=== PATIENT | male | born 1980 | race American Indian/Alaskan Native ===

== ENCOUNTER 2020-06-27 05:20 | Emergency (ER) | payer MEDICARE ==
[2020-06-27] MEDS ORDERED: dexAMETHasone 20 MG/5 ML VIAL IV ONE (05:31)
[2020-06-27] MEDS ORDERED: ALBUTEROL 2.5 MG/3 ML NEBU IH ONE (05:31)
[2020-06-27] MEDS ORDERED: dexAMETHasone 20 MG/5 ML VIAL IM ONE (05:34)
--- NOTE | 2020-06-27 05:38 | Event Note ---
ED Screening Note Date of service: 06/27/20 Time: 05:34 ED Screening Note: Patient is a 39-year-old -Italian male with a history of asthma who presents for cough and wheezing x3 weeks intermittently. Patient states he saw his PCP who recommended getting a chest x-ray. There is no fever noted at this time. This initial assessment/diagnostic orders/clinical plan/treatment(s) is/are subject to change based on patients health status, clinical progression and re- assessment by fellow clinical providers in the ED. Further treatment and workup at subsequent clinical providers discretion. Patient/guardian urged not to elope from the ED as their condition may be serious if not clinically assessed and managed. Initial orders include:CXR, Albuterol , decadron
--- NOTE | 2020-06-27 06:14 | XRay Report ---
CHEST 2 VIEWS INDICATION / CLINICAL INFORMATION: cough productive wheezing. COMPARISON: None available. FINDINGS: SUPPORT DEVICES: None. HEART / MEDIASTINUM: No significant abnormality. LUNGS / PLEURA: No significant pulmonary or pleural abnormality. No pneumothorax. ADDITIONAL FINDINGS: No significant additional findings. IMPRESSION: 1. No acute findings. Signer Name: Sergey Grant MD Signed: 06/27/2020 6:10 AM Workstation Name: [id number]
--- NOTE | 2020-06-27 06:49 | Emergency Department Report ---
ED Asthma HPI - General Chief Complaint: Adult Asthma Stated Complaint: ASHWINI Time Seen by Provider: 06/27/20 06:44 Source: patient Mode of arrival: Ambulatory Limitations: No Limitations - History of Present Illness Initial Comments: Patient is a 39-year-old -[place] male with a history of asthma who presents for cough and wheezing x3 weeks intermittently. Patient states he saw his PCP who recommended getting a chest x-ray. There is no fever noted at this time. - Related Data Previous Rx's Medication Instructions Recorded Last Taken Type Albuterol Mdi (or & Nicu Only) 2 puff IH QID PRN #8.5 gram 06/27/20 Unknown Rx [ProAir HFA Inhaler] predniSONE [Deltasone] 40 mg PO QDAY 5 Days #10 tab 06/27/20 Unknown Rx Allergies Allergy/AdvReac Type Severity Reaction Status Date / Time No Known Allergies Allergy Unverified 06/27/20 05:33 ED Review of Systems ROS: Stated complaint: ASHWINI Other details as noted in HPI Constitutional: denies: chills, fever Eyes: denies: eye pain, eye discharge, vision change ENT: throat pain, congestion Respiratory: cough, shortness of breath, wheezing Cardiovascular: denies: chest pain, palpitations Endocrine: no symptoms reported Gastrointestinal: denies: abdominal pain, nausea, diarrhea Genitourinary: denies: urgency, dysuria Musculoskeletal: denies: back pain, joint swelling, arthralgia Skin: denies: rash, lesions Neurological: denies: headache, weakness, paresthesias Psychiatric: denies: anxiety, depression Hematological/Lymphatic: denies: easy bleeding, easy bruising ED Past Medical Hx - Social History Smoking Status: Current Every Day Smoker Substance Use Type: None - Medications Home Medications: Home Medications Medication Instructions Recorded Confirmed Last Taken Type Albuterol Mdi (or & Nicu Only) 2 puff IH QID PRN #8.5 gram 06/27/20 Unknown Rx [ProAir HFA Inhaler] predniSONE [Deltasone] 40 mg PO QDAY 5 Days #10 tab 06/27/20 Unknown Rx ED Physical Exam - General Limitations: No Limitations General appearance: alert, in no apparent distress - Head Head exam: Present: atraumatic, normocephalic - Eye Eye exam: Present: normal appearance, EOMI Pupils: Present: normal accommodation - ENT ENT exam: Present: mucous membranes moist - Neck Neck exam: Present: normal inspection - Respiratory Respiratory exam: Present: wheezes. Absent: respiratory distress, stridor, chest wall tenderness - Cardiovascular Cardiovascular Exam: Present: regular rate, normal rhythm, normal heart sounds. Absent: systolic murmur, diastolic murmur, rubs, gallop - GI/Abdominal GI/Abdominal exam: Present: soft, normal bowel sounds. Absent: distended, tenderness, bruit, hernia - Rectal Rectal exam: Present: deferred - Extremities Exam Extremities exam: Present: normal inspection - Back Exam Back exam: Present: normal inspection, full ROM. Absent: tenderness - Neurological Exam Neurological exam: Present: alert, oriented X3, CN II-XII intact, normal gait - Psychiatric Psychiatric exam: Present: normal affect - Skin Skin exam: Present: warm, dry, intact, normal color. Absent: rash ED Course Vital Signs 06/27/20 06/27/20 05:31 06:08 Temperature 97.8 F Pulse Rate 85 Pulse Rate [ 88 Bilateral] Respiratory 22 Rate [Bilateral ] Blood Pressure 130/90 O2 Sat by Pulse 98 Oximetry ED Medical Decision Making - Radiology Data Radiology results: report reviewed, image reviewed Chest x-ray normal no opacities no infiltrates. - Medical Decision Making Chest x-ray normal no opacities no infiltrates, wheezing resolved with nebulizer treatment. Patient amatory in ED without increased shortness of breath and wheezing is resolved. Plan refill albuterol inhaler short burst prednisone follow-up with primary care doctor in 2 to 3 days. Patient verbalized agreement and understanding with discharge plan. Patient DC'd home in stable condition at this time. Critical care attestation.: If time is entered above; I have spent that time in minutes in the direct care of this critically ill patient, excluding procedure time. ED Disposition Clinical Impression: Asthma Qualifiers: Asthma severity: mild Asthma persistence: intermittent Asthma complication type: with acute exacerbation Qualified Code(s): J45.21 - Mild intermittent asthma with (acute) exacerbation Disposition: DC-01 TO HOME OR SELFCARE Is pt being admited?: No Does the pt Need Aspirin: No Condition: Stable Instructions: Asthma (ED), Asthma, Adult Prescriptions: predniSONE [Deltasone] 40 mg PO QDAY 5 Days #10 tab Albuterol Mdi (or & Nicu Only) [ProAir HFA Inhaler] 2 puff IH QID PRN #8.5 gram PRN Reason: Shortness Of Breath Referrals: JARED SIMONS MD [Staff Physician] - 3-5 Days Forms: Work/School Release Form(ED) Time of Disposition: 06:48
[2020-06-27 06:59] VITALS: BP 121/83
== END 2020-06-27 06:52 | disposition home or self-care (01) ==
LOC: ED 05:20
DX: J45.909 Unspecified asthma, uncomplicated (principal); F17.200 Nicotine dependence, unspecified, uncomplicated; Z79.899 Other long term (current) drug therapy
CPT/HCPCS: 71046; 94640; 96372; 99283; J1100; 94644

== ENCOUNTER 2020-12-14 18:17 | Emergency (ER) | payer MEDICARE ==
[2020-12-14 18:30] VITALS: BP 116/69
--- NOTE | 2020-12-14 18:33 | Event Note ---
ED Screening Note ED Screening Note: Patient presents for chest pain and shortness of breath that worsened today He states he is not sure if it is from his asthma but he does not have his albuterol inhaler He states occasionally he has a cough Breath sounds are clear bilaterally, no wheezing, no rales, no rhonchi Patient is tachycardic in triage This initial assessment/diagnostic orders/clinical plan/treatment(s) is/are subject to change based on patients health status, clinical progression and re- assessment by fellow clinical providers in the ED. Further treatment and workup at subsequent clinical providers discretion. Patient/guardian urged not to elope from the ED as their condition may be serious if not clinically assessed and managed. Initial orders include: Chest pain protocol ordered
--- NOTE | 2020-12-14 19:03 | XRay Report ---
CHEST 2 VIEWS INDICATION: Chest Pain. COMPARISON: 06/27/2020 FINDINGS: Support devices: None. Heart: Within normal limits. Lungs/Pleura: No acute air space or interstitial disease. No significant pleural effusion. IMPRESSION: No acute findings. Signer Name: Esteban August MD Signed: 12/14/2020 6:58 PM Workstation Name: [id number]
[2020-12-14 19:16] LABS: Basophils # (Auto) 0.1 K/mm3 (0.0-0.1); Basophils % (Auto) 0.8 % (0.0-1.8); Eosinophils # (Auto) 0.8 K/mm3 (0.0-0.4); Eosinophils % (Auto) 7.4 % (0.0-4.3); Hematocrit 40.1 % (35.5-45.6); Hemoglobin 13.4 gm/dl (11.8-15.2); Lymphocytes # (Auto) 3.9 K/mm3 (1.2-5.4); Mean Corpuscular HGB Conc 34 % (32-34); Mean Corpuscular Volume 91 fl (84-94); Monocytes # (Auto) 0.5 K/mm3 (0.0-0.8); Monocytes % (Auto) 4.9 % (0.0-7.3); Platelet Count 291 K/mm3 (140-440); Red Blood Count 4.42 M/mm3 (3.65-5.03); Red Cell Distribution Width 15.4 % (13.2-15.2)
[2020-12-14 19:36] LABS: Alanine Aminotransferase 35 units/L (7-56); Albumin 4.1 g/dL (3.9-5); BUN/Creatinine Ratio 8; Blood Urea Nitrogen 9 mg/dL (9-20); Calcium 9.3 mg/dL (8.4-10.2); Hemolysis Index 99
--- NOTE | 2020-12-14 19:41 | Emergency Department Report ---
ED General Adult HPI - General Chief complaint: Adult Asthma Stated complaint: SOB/ASTHMA Time Seen by Provider: 12/14/20 18:31 Source: patient Mode of arrival: Ambulatory Limitations: No Limitations - History of Present Illness Initial comments: 40-year-old male patient with history of asthma and depression presents to the emergency department with complaints of "asthma acting up and mental health." Patient states he does not have any inhalers or steroids. He is currently on an antidepressant. He takes the medication twice daily. He cannot recall the name of the medication. He feels as though the medication is not working anymore. He has a psychiatrist who prescribes these medications. He is scheduled to return to his psychiatrist for follow-up in 1 month. Patient has never required ICU admission/mechanical ventilation for his asthma. Denies fever, wheezing, suicidal ideation, homicidal ideation, hallucinations, paranoia. Denies all other complaints at this time. - Related Data Previous Rx's Medication Instructions Recorded Last Taken Type Albuterol Mdi (or & Nicu Only) 2 puff IH QID PRN #8.5 gram 06/27/20 Unknown Rx [ProAir HFA Inhaler] predniSONE [Deltasone] 40 mg PO QDAY 5 Days #10 tab 06/27/20 Unknown Rx Albuterol Sulfate [Proair 90 mcg IH Q4H PRN #1 aer.pow.ba 12/14/20 Unknown Rx Respiclick] Allergies Allergy/AdvReac Type Severity Reaction Status Date / Time No Known Allergies Allergy Unverified 06/27/20 05:33 ED Review of Systems ROS: Stated complaint: SOB/ASTHMA Other details as noted in HPI Other: GENERAL: Negative for fever, chills, weight change, anorexia, fatigue. ENT: Negative for ear pain, difficulty hearing, sore throat, nasal congestion, epistaxis. CARDIOVASCULAR: Negative for chest pain, palpitations, lower extremity swelling. PULMONARY: Positive for cough and shortness of breath. GASTROINTESTINAL: Negative for abdominal pain, nausea, vomiting, diarrhea, constipation. MUSCULOSKELETAL: Negative for joint pain, joint swelling, myalgias, back pain, neck pain. NEUROLOGICAL: Negative for headache, seizure, syncope, paresthesias, weakness. INTEGUMENTARY: Negative for erythema, rash, diaphoresis, laceration, ecchymosis. HEMATOLOGICAL: Negative for hemoptysis, hematemesis, hematochezia, hematuria. PSYCHIATRIC: Positive for depression. ED Past Medical Hx - Past Medical History Previous Medical History?: Yes Hx Asthma: Yes - Social History Smoking Status: Current Every Day Smoker Substance Use Type: None - Medications Home Medications: Home Medications Medication Instructions Recorded Confirmed Last Taken Type Albuterol Mdi (or & Nicu Only) 2 puff IH QID PRN #8.5 gram 06/27/20 Unknown Rx [ProAir HFA Inhaler] predniSONE [Deltasone] 40 mg PO QDAY 5 Days #10 tab 06/27/20 Unknown Rx Albuterol Sulfate [Proair 90 mcg IH Q4H PRN #1 aer.pow.ba 12/14/20 Unknown Rx Respiclick] ED Physical Exam - General Limitations: No Limitations - Other Other exam information: General: Awake and alert. No acute distress. Head: Atraumatic, normocephalic. Eyes: EOMI. Pupils are equal and round. Normal sclera and conjunctiva. ENT: Oral mucosa is moist. Normal pharyngeal exam. Neck: Supple. No lymphadenopathy. Pulmonary: No respiratory distress. Clear to auscultation bilaterally. Cardiac: Regular rate and rhythm. Pulses are palpable and equal bilaterally. No lower extremity cyanosis or edema. Skin: Warm and dry. No rashes. Abdomen: Soft, non-tender, non-protuberant. No guarding, rigidity, or rebound. Bowel sounds are normal. No organomegaly or masses noted. Back: Normal alignment. No CVA tenderness. Extremities: Symmetrical. Full range of motion intact. Neurological: Alert and oriented, appropriately interactive, no focal deficits. Psych: Cooperative. Appropriate mood and affect. Speech is evenly metered. Thoughts are logically construed. ED Course Vital Signs 12/14/20 18:28 Temperature 98.5 F Pulse Rate 96 H Respiratory 18 Rate Blood Pressure 116/69 [Right] O2 Sat by Pulse 100 Oximetry ED Medical Decision Making - Lab Data Result diagrams: 12/14/20 18:39 12/14/20 18:39 - Medical Decision Making Patient presents to the emergency department with complaints of "asthma flareup" and "mental health." He is afebrile. Vital signs are stable. Heart rate is 96 bpm. No hypoxia, no respiratory distress. Lungs are clear to auscultation. Labs and chest x-ray obtained by [facility] provider within normal limits. No clinical indication for further diagnostic work-up and/or emergent administration of asthma medications at this time. He will be prescribed an albuterol inhaler and instructed to follow-up with his primary care provider this week. With regards to the patient's mental health, he adamantly and repeatedly denies suicidal ideation, homicidal ideation, hallucinations, paranoia. He is alert and oriented, neurological exam is nonfocal. He is not exhibiting aggression, agitation, and does not appear to be clinically intoxicated. He does not appear to pose a threat to himself or to the safety of others. Patient does not meet criteria for emergent psychiatric evaluation. Patient is already under the care of a psychiatrist and is already taking antidepressants. He has been instructed to call his psychiatrist tomorrow morning to schedule an outpatient follow-up appointment for adjustment of his medication regimen. Emphasized the importance of continuing to adhere to his current medication regimen and returning to the emergency department immediately if he experiences any thoughts of suicide, or if he feels as though his depression is otherwise worsening. Patient expressed understanding and is agreeable to plan of care. Strict return precautions provided. Case discussed with Dr. Stout, attending emergency physician, who agrees with plan of care. Critical care attestation.: If time is entered above; I have spent that time in minutes in the direct care of this critically ill patient, excluding procedure time. ED Disposition Clinical Impression: History of asthma, History of depression Disposition: DC-01 TO HOME OR SELFCARE Is pt being admited?: No Does the pt Need Aspirin: No Condition: Stable Instructions: Asthma, Adult, Major Depressive Disorder, Adult, [id number] Additional Instructions: Use Albuterol as needed for asthma. Avoid smoke and environmental triggers, which may worsen your asthma. Continue your medications as previously prescribed. Avoid alcohol and illicit substances, which may worsen your depression. Follow-up with your primary care provider and your psychiatrist this week. Call tomorrow to schedule an appointment. Return to the emergency department immediately for new or worsening symptoms. Specifically, return to the emergency department immediately for fever, difficulty breathing, chest pain, thoughts of suicide, thoughts of homicide, delusions, hallucinations, paranoia, worsening depression, or any other concerns. Prescriptions: Albuterol Sulfate [Proair Respiclick] 90 mcg IH Q4H PRN #1 aer.pow.ba PRN Reason: Shortness Of Breath Referrals: CARBUCCIA,RAYSHAWN, MD [Staff Physician] - 3-[address] [facility] [Outside] - 3-5 Days Time of Disposition: 19:42
--- NOTE | 2020-12-15 14:32 | Electrocardiograph Report ---
[facility] Test Date: 2020-12-14 Test Time: 19:20:21 Pat Name: MINOO JEONG Department: Room: Gender: M Pack Worker: MAMIE : 1980 Requested By: JOSE FRANCISCO SPENCE Order Number: [id number] Reading MD: Jennifer Levi Measurements Intervals [place] Rate: 105 P: 58 MD: 147 QRS: 100 QRSD: 90 T: 20 QT: 324 QTc: 428 Interpretive Statements Sinus tachycardia Right axis deviation No previous ECG available for comparison Electronically Signed On 12-15-2020 14:31:51 EDT by Jennifer Levi
== END 2020-12-14 19:45 | disposition home or self-care (01) ==
LOC: ED 18:17
DX: J45.909 Unspecified asthma, uncomplicated (principal); F32.9 Major depressive disorder, single episode, unspecified; F17.200 Nicotine dependence, unspecified, uncomplicated
CPT/HCPCS: 36415; 71046; 80053; 83880; 84484; 85025; 85379; 93005; 99283